=== PATIENT | female | born 1950 | race Caucasian/White ===

== ENCOUNTER 2017-07-09 14:39 | Emergency (ER) | payer OTHER ==
[~2017-07-09] VITALS: Ht 165.1 cm; Wt 90.6 kg
[2017-07-09] MEDS ORDERED: NORCO 5/3251 TABLET PO (21:11)
[2017-07-09 21:37] VITALS: BP 150/81
== END 2017-07-09 21:38 | disposition home or self-care (01) ==
LOC: EME 14:39
PROC: 3E0234Z Introduction of Serum, Toxoid and Vaccine into Muscle, Percutaneous Approach (ICD-10-PCS; principal; 2017-07-09)
DX: S02.2XXA Fracture of nasal bones, initial encounter for closed fracture (principal); S42.211A Unspecified displaced fracture of surgical neck of right humerus, initial encounter for closed fracture; G93.9 Disorder of brain, unspecified; W01.0XXA Fall on same level from slipping, tripping and stumbling without subsequent striking against object, initial encounter; Z23 Encounter for immunization; K21.9 Gastro-esophageal reflux disease without esophagitis; Z96.653 Presence of artificial knee joint, bilateral
CPT/HCPCS: 70450; 70486; 73030; 73070; 73564; 99281; 99284; J3010